=== PATIENT | male | born 1980 | race African-American/Black ===

== ENCOUNTER 2019-08-05 21:01 | Observation (INO) ==
[2019-08-05] MEDS ORDERED: ONDANSETRON 4 MG/2 ML VIAL IV STA (22:02)
[2019-08-05] MEDS ORDERED: ALUM/MAG/SIMETH/LIDO VISC 1:1 30 ML BOTTLE PO STA (22:02)
[2019-08-05] MEDS ORDERED: ACETAMINOPHEN 500 MG TABLET PO STA (22:02)
[2019-08-05] MEDS ORDERED: SODIUM CHLORIDE 0.9% 1,000 ML IV STA (22:02)
[2019-08-05 22:54] LABS: Basophils % 0.3 % (0.0-0.8); Hematocrit 43.2 VOL% (42.0-52.0); Hemoglobin 14.2 GM/DL (14.0-18.0); Immature Granulocytes % 0.5 %; Immature Granulocytes Absolute 0.03 #; Lymphocytes # 1.8 10*3/uL (1.4-4.0); Lymphocytes % 28.4 % (21.2-54.2); Mean Corpuscular HGB Conc 32.9 GM/DL (32-36); Mean Corpuscular Volume 88.9 FL (87-102); Mean Platelet Volume 10.9 FL (9.6-12.0); Monocytes % 6.5 % (1.7-12.7); Neutrophils % 64.3 % (38.7-73.9); Platelet Count 166 T/CUMM (130-400); Red Blood Count 4.86 MC/CUMM (3.8-5.5); Red Cell Distribution Width 11.3 % (9.3-17.3); White Blood Count 6.2 T/CUMM (4-12)
[2019-08-05 23:26] LABS: Albumin 3.3 G/DL (3.4-5.0); Bilirubin,Total 1.4 MG/DL (0.2-1.0); Ferritin 3982.9 ng/ml (26-388); Osmolality,Calculated 266.8 MOS/KG (273-304); Total Protein 8.1 G/DL (6.4-8.3)
[2019-08-05 23:51] LABS: PT Patient Result 10.9 SECS (9.8-11.9)
[2019-08-06] MEDS ORDERED: PIPERACILLIN/TAZOBACTAM 3,375 MG in SODIUM CHLORIDE 0.9% 100 ML IV STA (00:04)
[2019-08-06 02:26] LABS: Apearance,Urine CLEAR (Clear); Bilirubin,Urine Negative (Negative); Blood, Urine Small mg/dL (Negative); Glucose,Urine (UA) >=500 mg/dL (Negative); Ketones,Urine 5 mg/dL (Negative); Mucus,Urine Occasional /LPF (Occasional); Nitrite,Urine Negative (Negative); Protein,Urine 100 MG/DL; RBC,Urine 6 /HPF (0-4); Urine Color Amber (Yellow); Urine Specific Gravity 1.025 (1.001-1.035); WBC,Urine 3 /HPF (0-6)
[2019-08-06] MEDS ORDERED: DEXTROSE 50% 25 GM/50 ML VIAL IV PRN (03:27)
[2019-08-06] MEDS ORDERED: ACETAMINOPHEN 325 MG TABLET PO PRN (03:27)
[2019-08-06] MEDS ORDERED: AZITHROMYCIN INJ 250 MG in SODIUM CHLORIDE 0.9% 250 ML IV SCH (03:27)
[2019-08-06] MEDS ORDERED: GLUCAGON 1 MG VIAL IM PRN (03:27)
[2019-08-06] MEDS ORDERED: HYDROmorphone 2 MG/1 ML VIAL IV PRN (03:27)
[2019-08-06] MEDS ORDERED: ONDANSETRON 4 MG/2 ML VIAL IV PRN (03:27)
[2019-08-06] MEDS: SODIUM CHLORIDE 0.9% 1,000 ML IV SCH ×3 (04:25→20:55)
[2019-08-06 06:44] LABS: Basophils % 0.2 % (0.0-0.8); Hemoglobin 13.1 GM/DL (14.0-18.0); Immature Granulocytes % 0.4 %; Immature Granulocytes Absolute 0.02 #; Lymphocytes % 39.6 % (21.2-54.2); Mean Corpuscular HGB Conc 33.6 GM/DL (32-36); Mean Corpuscular Volume 87.6 FL (87-102); Neutrophils % 53.8 % (38.7-73.9); Platelet Count 155 T/CUMM (130-400); Red Blood Count 4.45 MC/CUMM (3.8-5.5); Red Cell Distribution Width 11.3 % (9.3-17.3)
[2019-08-06 07:10] LABS: Albumin 2.8 G/DL (3.4-5.0); Bilirubin,Total 1.6 MG/DL (0.2-1.0); Calcium 8.6 MG/DL (8.5-10.1); Osmolality,Calculated 264.8 MOS/KG (273-304)
[2019-08-06 07:48] LABS: Band Neutrophils 3 % (0-10); Hypochromasia 1+; Lymphocytes 42 % (20-55); Segmented Neutrophils 48 % (50-85); Total Cells Counted 100
[2019-08-06 07:49] LABS: Microcytosis 1+; Ovalocytes Slight; Platelet Estimate Adequate
[2019-08-06] MEDS ORDERED: PANTOPRAZOLE 40 MG TABLET PO SCH (09:00)
[2019-08-06] MEDS ORDERED: HYDROXYCHLOROQUINE 200 MG TABLET PO SCH (09:00)
[2019-08-06] MEDS ORDERED: FAMOTIDINE 20 MG TABLET PO SCH (09:00)
[2019-08-06] MEDS: INSULIN REGULAR 100 UNIT/ML SUBCUT SCH ×3 (09:03→20:25)
[2019-08-06] MEDS: DOCUSATE SODIUM 100 MG CAPSULE PO SCH ×2 (09:04→20:24)
[2019-08-06] MEDS: ENOXAPARIN 40 MG/0.4 ML SYRINGE SUBCUT SCH (09:04)
[2019-08-06] MEDS: AZITHROMYCIN 250 MG TABLET PO SCH (09:04)
[2019-08-07] MEDS: INSULIN REGULAR 100 UNIT/ML SUBCUT SCH ×3 (01:31→14:45)
[2019-08-07 05:20] LABS: Basophils % 0.2 % (0.0-0.8); Hematocrit 40.5 VOL% (42.0-52.0); Hemoglobin 13.4 GM/DL (14.0-18.0); Immature Granulocytes % 0.6 %; Immature Granulocytes Absolute 0.03 #; Lymphocytes # 2.2 10*3/uL (1.4-4.0); Lymphocytes % 42.3 % (21.2-54.2); Mean Corpuscular HGB Conc 33.1 GM/DL (32-36); Mean Corpuscular Volume 88.8 FL (87-102); Mean Platelet Volume 10.9 FL (9.6-12.0); Monocytes % 5.7 % (1.7-12.7); Neutrophils % 51.2 % (38.7-73.9); Platelet Count 173 T/CUMM (130-400); Red Blood Count 4.56 MC/CUMM (3.8-5.5); Red Cell Distribution Width 11.3 % (9.3-17.3); White Blood Count 5.3 T/CUMM (4-12)
[2019-08-07 05:51] LABS: Ferritin 6786.8 ng/ml (26-388)
[2019-08-07 05:52] LABS: Calcium 8.9 MG/DL (8.5-10.1); Osmolality,Calculated 269.2 MOS/KG (273-304)
[2019-08-07] MEDS: SODIUM CHLORIDE 0.9% 1,000 ML IV SCH (07:18)
[2019-08-07] MEDS ORDERED: CHOLESTYRAMINE 4 GM PACK PO SCH (09:00)
[2019-08-07] MEDS: ENOXAPARIN 40 MG/0.4 ML SYRINGE SUBCUT SCH (09:41)
[2019-08-07] MEDS: AZITHROMYCIN 250 MG TABLET PO SCH (09:41)
[2019-08-07] MEDS: DOCUSATE SODIUM 100 MG CAPSULE PO SCH (09:41)
[2019-08-07 12:21] VITALS: BP 134/84
== END 2019-08-07 14:24 | disposition home or self-care (01) ==
LOC: N.ED 21:01 → N.EDINP 21:01 → N.2E 08-06 03:26
PROVIDERS: ADMIT Hospitalist; ATTEND Hospitalist